=== PATIENT | male | born 1965 | race Caucasian/White ===

== ENCOUNTER 2016-10-30 11:55 | Emergency (ER) | payer OTHER ==
[~2016-10-30] VITALS: Ht 170.2 cm; Wt 81.8 kg
[2016-10-30 12:02] VITALS: Ht 170.2 cm; Wt 81.8 kg
[2016-10-30] MEDS ORDERED: KETOROLAC 60 MG INJ IM STA (12:33)
--- NOTE | 2016-10-30 12:57 | RADRPT ---
PROCEDURE: XR Chest. CLINICAL INDICATION: Trauma. Upper back pain. TECHNIQUE: Single frontal view. COMPARISON: None. FINDINGS: The lungs are clear. The heart size is normal. There is no pleural effusion. There is no pneumothorax. IMPRESSION: 1. Normal chest radiograph. RPTAT: QQ .Robbie Montenegro MD, MD Date Time Electronically viewed and signed by .Robbie Montenegro MD, on 10/30/2016 12:56 .R/
[2016-10-30] MEDS ORDERED: HYDROmorphONE 2 MG/ML SYG IM ONE (13:00)
[2016-10-30] MEDS ORDERED: ONDANSETRON (ODT) 4 MG TAB ODT ONE (13:00)
[2016-10-30] MEDS ORDERED: IBUP800T25 PO (14:01)
[2016-10-30] MEDS ORDERED: HYDR-902 PO (14:01)
[2016-10-30] MEDS ORDERED: METH-70 PO (14:01)
--- NOTE | 2016-10-30 14:05 | ERD ---
ER Documentation Chief Complaint Date/Time DATE: 10/30/16 TIME: 14:02 Chief Complaint BROUGHT IN VIA EMS DUE TO BACK PAIN WITH SPASMS HPI 51-year-old homeless man is complaining of chronic back pain exacerbation. Is complaining of spasm to the left side of his lumbar spine with radiation down the back of the left leg. Pain is described as sharp worse with movement better with rest no loss of bowel or bladder function. No fever dysuria abdominal pain vomiting diarrhea. Patient says has a dry cough no short of breath no chest pain ROS All systems reviewed and are negative except as per history of present illness. Medications Home Meds Active Scripts Ibuprofen* (Motrin*) 800 Mg Tab, 800 MG PO TID, #30 TAB Prov:IFEOMA PIZARRO. DO 10/30/16 Methocarbamol* (Robaxin*) 750 Mg Tablet, 750 MG PO TID, #30 TAB Prov:DONG PIZARROS A. DO 10/30/16 Hydrocodone/Acetaminophen (Pella 10-325 Tablet) 1 Each Tablet, 1 TAB PO Q6H Y for PAIN, #20 TAB Prov:IFEOMA PIZARRO. DO 10/30/16 PMhx/Soc Medical and Surgical Hx: Unable to obtain Hx Miscellaneous Medical Probl: Yes (HIV ) Hx Alcohol Use: Yes Hx Substance Use: Yes Hx Tobacco Use: Yes Smoking Status: Current every day smoker FmHx Family History: No coronary disease Physical Exam Vitals Vital Signs Date Time Temp Pulse Resp B/P Pulse Ox O2 Delivery O2 Flow Rate FiO2 10/30/16 12:02 98.1 86 18 142/86 98 Physical Exam Const: Well-developed, well-nourished Head: Atraumatic, normocephalic Eyes: Normal Conjunctiva, PERRLA, EOMI, normal sclera, no nystagmus ENT: Normal External Ears, Nose and Mouth, moist mucus membranes. Neck: Full range of motion. No meningismus, no lymphadenopathy. Resp: Clear to auscultation bilaterally, no wheezing, rhonchi, rales Cardio: Regular rate and rhythm, no murmurs, S1 S2 present Abd: Soft, non tender x 4, non distended. Normal bowel sounds, no guarding or rebound, no pulsitile abdominal masses or bruits Skin: No petechiae or rashes, no ecchymosis , no maculopapular rash Back: Left-sided lumbar spine muscle spasm no midline tenderness pain with leg flexion no saddle anesthesia no straight leg test no weakness or numbness Ext: No cyanosis, or edema, FROM x 4, normal inspection, neurovascularly intact x 4 Neur: Awake and alert, STR 5/5 x 4, sensation intact x 4, no focal findings, cerebellum intact Psych: Normal Mood and Affect Results 24 hrs Current Medications Medications (Trade) Dose Ordered Sig/Sandra Route PRN Reason Start Time Stop Time Status Last Admin Dose Admin Hydromorphone HCl (Dilaudid) 1 mg ONCE ONCE IM 10/30/16 13:00 10/30/16 13:01 DC 10/30/16 13:35 Ondansetron HCl (Zofran Odt) 4 mg ONCE ONCE ODT 10/30/16 13:00 10/30/16 13:01 DC 10/30/16 13:34 Ketorolac Tromethamine (Toradol) 60 mg ONCE STAT IM 10/30/16 12:33 10/30/16 12:35 DC 10/30/16 13:35 Procedures/MDM Chest x-ray is negative per radiology Departure Diagnosis: Primary Impression: Back pain Back pain location: low back pain Chronicity: chronic Back pain laterality : left Sciatica presence: with sciatica Sciatica laterality: sciatica of left side Qualified Code: M54.42 - Chronic left-sided low back pain with left- sided sciatica Condition: Stable Patient Instructions: Back Pain W/ Sciatica Referrals: NO PRIMARY,CARE PHYSICIAN (PCP) IFEOMA PIZARRO DO Oct 30, 2016 14:05
== END 2016-10-30 15:00 | disposition home or self-care (01) ==
LOC: E/R 11:55
DX: M54.42 Lumbago with sciatica, left side (principal); F17.210 Nicotine dependence, cigarettes, uncomplicated
CPT/HCPCS: 71010; J1170; J1885; 96372